=== PATIENT | male | born 1935 | race Caucasian/White ===

== ENCOUNTER → 2017-06-30 | Outpatient (CLI) | payer OTHER, MEDICARE | LOC: HYPER 06:59 | DX: L73.2 Hidradenitis suppurativa (principal); K62.6 Ulcer of anus and rectum; I50.9 Heart failure, unspecified; M19.90 Unspecified osteoarthritis, unspecified site; Z87.01 Personal history of pneumonia (recurrent); Z96.643 Presence of artificial hip joint, bilateral ==

== ENCOUNTER → 2017-07-14 | Outpatient (CLI) | payer OTHER, MEDICARE | LOC: HYPER 07:04 | DX: S31.829A Unspecified open wound of left buttock, initial encounter (principal); S31.819D Unspecified open wound of right buttock, subsequent encounter; L73.2 Hidradenitis suppurativa; K62.6 Ulcer of anus and rectum; I50.9 Heart failure, unspecified; M19.90 Unspecified osteoarthritis, unspecified site; Y83.8 Other surgical procedures as the cause of abnormal reaction of the patient, or of later complication, without mention of misadventure at the time of the procedure ==